=== PATIENT | male | born 1980 | race Caucasian/White ===

== ENCOUNTER 2023-07-08 10:24 | Emergency (ER) | payer MEDICAID ==
[~2023-07-08] VITALS: Ht 165.1 cm; Wt 70.3 kg
[2023-07-08 10:25] VITALS: BP_SYST 132; PULSE 76; RESP 18; TEMP 97.2; O2SAT 98
[2023-07-08] MEDS ORDERED: IBUP-1968 PO (11:18)
== END 2023-07-08 11:25 | disposition home or self-care (01) ==
LOC: SED 10:24
DX: M79.644 Pain in right finger(s) (principal); Z79.899 Other long term (current) drug therapy
CPT/HCPCS: 73140-TC; 99283